=== PATIENT | male | born 1955 | race Caucasian/White ===

== ENCOUNTER → 2021-09-12 | Outpatient (CLI) | payer MEDICARE, OTHER ==
[2021-09-17 15:10] LABS: A1A FOR PHENOTYPE 100 mg/dL (101-187); ALPHA-1-ANTITRYPSIN PHENOTYPE MS (.)
== END ==
LOC: M WUC 15:03
PROVIDERS: ATTEND Internal Medicine Pulmonary Disease
DX: R06.00 Dyspnea, unspecified (principal)

== ENCOUNTER 2023-10-24 07:31 | Day surgery (SDC) | payer MEDICARE, OTHER ==
[~2023-10-24] VITALS: Ht 182.9 cm; Wt 91.1 kg
[~2023-10-24 07:31] MED LIST: ASPI81TA26 PO; ERGO500029 PO; NS 1,000 ML IV ONE; SYNT25TA PO; VITMTA PO
[2023-10-24] MEDS ORDERED: propofoL 200 MG/20 ML VIAL As Ordered ONE (08:04)
[2023-10-24] MEDS ORDERED: LIDOCAINE 2% 100MG/5ML SDV (FOR ANES.) As Ordered ONE (08:04)
[2023-10-24 09:29] VITALS: TEMP 98.1
[2023-10-24 09:45] VITALS: BP 114/70; O2SAT 98
== END 2023-10-24 09:54 | disposition home or self-care (01) ==
LOC: M OPP 07:31
PROVIDERS: ATTEND Surgery
DX: Z12.11 Encounter for screening for malignant neoplasm of colon (principal); Z86.010 Personal history of colon polyps; K63.89 Other specified diseases of intestine; Z79.82 Long term (current) use of aspirin; Z79.890 Hormone replacement therapy